=== PATIENT | female | born 2000 | race Two or more races ===

== ENCOUNTER 2024-01-24 10:17 | Outpatient (CLI) ==
[~2024-01-24] VITALS: Ht 160 cm; Wt 67.0 kg
[2024-01-24 10:26] VITALS: BP 131/75
[2024-01-24] MEDS ORDERED: PRENTAB9 PO (11:00)
[2024-01-24] MEDS: BETAMETHASONE SOLUSPAN 6MG/ML 5ML VIAL IM SCH (11:31)
[2024-01-24] MEDS ORDERED: HOME MED LIST COMPLETE! XX SCH (11:45)
[2024-01-24 12:06] LABS: APPEARANCE, URINE HAZY (CLEAR); BACTERIA, URINE AUTO NEGATIVE (NEGATIVE); BILIRUBIN, URINE AUTO NEGATIVE (NEGATIVE); BLOOD, URINE BLOOD NEGATIVE (NEGATIVE); COLOR, URINE YELLOW (YELLOW); GLUCOSE, URINE (UA) AUTO 1+ mg/dL (NEGATIVE); KETONE, URINE AUTO NEGATIVE (NEGATIVE); LEUKOCYTE ESTERASE, URINE AUTO NEGATIVE (NEGATIVE); MUCUS, URINE SMALL (NEGATIVE); NITRITE, URINE AUTO NEGATIVE (NEGATIVE); PROTEIN, URINE AUTO NEGATIVE (NEGATIVE); RBC, URINE AUTO 0 /HPF (0-3); SPECIFIC GRAVITY URINE AUTO 1.015 (1.002-1.035); SQUAMOUS EPITHELIAL CELL UR AU 0 /HPF (0-6); UROBILINOGEN, URINE AUTO 0.2 mg/dL (0.0-2.0); WBC, URINE AUTO 2 /HPF (0-3)
[2024-01-24 12:28] LABS: HEMATOCRIT 31.3 % (36.0-47.0); HEMOGLOBIN 10.7 g/dl (12.0-15.5); MEAN CORPUSCULAR HEMOGLOBIN 31.3 pg (27.0-33.0); MEAN CORPUSCULAR HGB CONC 34.2 g/dl (32.0-36.5); MEAN CORPUSCULAR VOLUME 91.5 fl (80.0-96.0); PLATELET COUNT, AUTOMATED 286 10^3/uL (150-450); RED BLOOD COUNT 3.42 10^6/uL (4.00-5.40); WHITE BLOOD COUNT 9.6 10^3/uL (4.0-10.0)
[2024-01-24 13:08] LABS: ALBUMIN 2.6 G/DL (3.2-5.2); ALKALINE PHOSPHATASE 68 U/L (35-104); ALT/SGPT 44 U/L (7.0-40); AST/SGOT 21 U/L (<34); BILIRUBIN,TOTAL 0.2 MG/DL (0.3-1.2); BLOOD UREA NITROGEN 8 MG/DL (9-23); CALCIUM LEVEL 8.4 MG/DL (8.5-10.1); CARBON DIOXIDE LEVEL 25 MMOL/L (20-31); CHLORIDE LEVEL 108 MMOL/L (98-107); CREATININE FOR GFR 0.56 MG/DL (0.55-1.30); GLOMERULAR FILTRATION RATE > 60.0 (>60); GLUCOSE, FASTING 86 MG/DL (60-100); POTASSIUM SERUM 3.9 MMOL/L (3.5-5.1); SODIUM LEVEL 138 MMOL/L (136-145); TOTAL PROTEIN 6.3 G/DL (5.7-8.2)
[2024-01-24 13:37] VITALS: BP 115/60
[2024-01-24 15:31] VITALS: BP 125/74
[2024-01-24 18:28] VITALS: BP 118/67
[2024-01-24 19:52] VITALS: BP 118/58
[2024-01-24] MEDS: ACETAMINOPHEN 500 MG TAB PO PRN (21:06)
[2024-01-24 23:11] VITALS: BP 104/59
[2024-01-24 23:47] LABS: Trichomonas vaginalis (AMP) NOT DETECTED (NEGATIVE)
[2024-01-25 00:10] LABS: GC DNA AMPLIFICATION NEGATIVE (NEGATIVE)
[2024-01-25 02:02] VITALS: BP 85/43
[2024-01-25 06:43] VITALS: BP 109/59
[2024-01-25 07:14] VITALS: BP 117/55
[2024-01-25] MEDS ORDERED: PRENATAL VITAMINS CHEWABLE TABLET PO SCH (09:00)
[2024-01-25 10:59] VITALS: BP 114/58
== END 2024-01-25 12:39 | disposition home or self-care (01) ==
LOC: M LDO 10:17
PROVIDERS: ATTEND Advanced Practice Midwife
DX: O26.892 Other specified pregnancy related conditions, second trimester (principal); O26.22 Pregnancy care for patient with recurrent pregnancy loss, second trimester; R10.31 Right lower quadrant pain; M54.50 Low back pain, unspecified; Z3A.27 27 weeks gestation of pregnancy
CPT/HCPCS: 36415; 59025; 76817; 80053; 81001; 82731; 85027; 86850; 86900; 86901; 87070; 87081; 87661; 87810; 87850; 96372; G0463; J0702

== ENCOUNTER 2024-01-27 14:15 | Outpatient (CLI) | payer OTHER ==
[~2024-01-27] VITALS: Ht 160 cm; Wt 66.8 kg
[~2024-01-27 14:15] MED LIST: PRENTAB9 PO
[2024-01-27] MEDS ORDERED: ACET500P3 PO (14:26)
[2024-01-27 14:28] VITALS: BP 112/60
[2024-01-27] MEDS ORDERED: HOME MED LIST COMPLETE! XX SCH (14:30)
== END 2024-01-27 17:00 | disposition home or self-care (01) ==
LOC: M LDO 14:15
PROVIDERS: ATTEND Obstetrics & Gynecology
DX: O26.893 Other specified pregnancy related conditions, third trimester (principal); O26.23 Pregnancy care for patient with recurrent pregnancy loss, third trimester; O99.343 Other mental disorders complicating pregnancy, third trimester; R10.2 Pelvic and perineal pain; F41.9 Anxiety disorder, unspecified; F43.10 Post-traumatic stress disorder, unspecified; Z3A.28 28 weeks gestation of pregnancy
CPT/HCPCS: 59025; 76815; G0463

== ENCOUNTER 2024-02-20 07:47 | Outpatient (CLI) | payer OTHER ==
[~2024-02-20] VITALS: Ht 160 cm; Wt 72.1 kg
[~2024-02-20 07:47] MED LIST changes: +ACET500P3 PO
[2024-02-20 08:07] VITALS: BP 102/66
[2024-02-20] MEDS ORDERED: HOME MED LIST COMPLETE! XX SCH (08:15)
[2024-02-20] MEDS: ACETAMINOPHEN 500 MG TAB PO PRN (08:40)
[2024-02-20] MEDS: FLUCONAZOLE 50MG TABLET PO ONE (08:42)
[2024-02-20 08:58] LABS: APPEARANCE, URINE CLEAR (CLEAR); BACTERIA, URINE AUTO NEGATIVE (NEGATIVE); BILIRUBIN, URINE AUTO NEGATIVE (NEGATIVE); BLOOD, URINE BLOOD NEGATIVE (NEGATIVE); COLOR, URINE YELLOW (YELLOW); GLUCOSE, URINE (UA) AUTO NEGATIVE (NEGATIVE); KETONE, URINE AUTO NEGATIVE (NEGATIVE); LEUKOCYTE ESTERASE, URINE AUTO NEGATIVE (NEGATIVE); MUCUS, URINE SMALL (NEGATIVE); NITRITE, URINE AUTO NEGATIVE (NEGATIVE); PROTEIN, URINE AUTO NEGATIVE (NEGATIVE); RBC, URINE AUTO 2 /HPF (0-3); SPECIFIC GRAVITY URINE AUTO 1.014 (1.002-1.035); SQUAMOUS EPITHELIAL CELL UR AU 0 /HPF (0-6); UROBILINOGEN, URINE AUTO 0.2 mg/dL (0.0-2.0); WBC, URINE AUTO 1 /HPF (0-3)
== END 2024-02-20 09:41 | disposition home or self-care (01) ==
LOC: M LDO 07:47
PROVIDERS: ATTEND Obstetrics & Gynecology
DX: O47.03 False labor before 37 completed weeks of gestation, third trimester (principal); O26.893 Other specified pregnancy related conditions, third trimester; R10.2 Pelvic and perineal pain; Z3A.31 31 weeks gestation of pregnancy
CPT/HCPCS: 59025; 76815; 81001; 87086; G0463

== ENCOUNTER 2024-02-24 10:19 | Outpatient (CLI) | payer OTHER ==
[~2024-02-24] VITALS: Ht 160 cm; Wt 72.7 kg
[2024-02-24 10:53] VITALS: BP 101/64
[2024-02-24] MEDS ORDERED: HOME MED LIST COMPLETE! XX SCH (10:55)
[2024-02-24 11:40] VITALS: BP 104/60
== END 2024-02-24 12:37 | disposition home or self-care (01) ==
LOC: M LDO 10:19
PROVIDERS: ATTEND Obstetrics & Gynecology
DX: O47.03 False labor before 37 completed weeks of gestation, third trimester (principal); Z3A.32 32 weeks gestation of pregnancy
CPT/HCPCS: 59025; G0463

== ENCOUNTER 2024-03-19 10:38 | Inpatient (IN) | payer OTHER ==
[~2024-03-19] VITALS: Ht 160 cm; Wt 74.3 kg
[2024-03-19] VITALS (27 sets, daily range): BP systolic 88–151; BP diastolic 51–79; O2SAT 100
[2024-03-19] MEDS ORDERED: REGL10TA6 PO (10:55)
[2024-03-19] MEDS ORDERED: HOME MED LIST COMPLETE! XX SCH (11:00)
[2024-03-19] MEDS ORDERED: PENICILLIN G POTASSIUM 5 MU IV 5 MU in DEXTROSE 5% (D5W) MINI-BAG PLU 100 ML IV STA (11:37)
[2024-03-19] MEDS ORDERED: METHYLERGONOVINE MALEATE 0.2MG/ML 1ML VIAL IM PRN (11:40)
[2024-03-19] MEDS ORDERED: CARBOPROST TROMETHAMINE 250 MCG/ML AMP IM PRN (11:40)
[2024-03-19] MEDS ORDERED: LIDOCAINE 1% MDV 20ML VIAL INFIL PRN (11:40)
[2024-03-19] MEDS ORDERED: OXYTOCIN DRIP 30 UNITS in IV 1 EA IV PRN (11:40)
[2024-03-19] MEDS ORDERED: TRANEXAMIC ACID INJection 1,000 MG in NS 100 ML IV PRN (11:40)
[2024-03-19] MEDS ORDERED: **PENDING PCN ENTRY XX SCH (12:00)
[2024-03-19 12:48] LABS: HEMATOCRIT 36.2 % (36.0-47.0); HEMOGLOBIN 11.8 g/dl (12.0-15.5); MEAN CORPUSCULAR HEMOGLOBIN 28.8 pg (27.0-33.0); MEAN CORPUSCULAR HGB CONC 32.6 g/dl (32.0-36.5); MEAN CORPUSCULAR VOLUME 88.3 fl (80.0-96.0); PLATELET COUNT, AUTOMATED 317 10^3/uL (150-450); WHITE BLOOD COUNT 8.1 10^3/uL (4.0-10.0)
[2024-03-19] MEDS: LACTATED RINGER'S 1000 ML IV STA (12:49)
[2024-03-19] MEDS: OXYTOCIN DRIP 30 UNITS in IV 1 EA IV SCH ×2 (12:50→19:09)
[2024-03-19] MEDS: PENICILLIN G POTASSIUM 5 MU IV 5 MU in DEXTROSE 5% (D5W) MINI-BAG PLU 100 ML IV ONE (12:50)
[2024-03-19 14:04] LABS: HEPATITIS C VIRUS ABY INDEX 0.02 INDEX (<0.8)
[2024-03-19] MEDS ORDERED: ePHEDrine SULFATE 25 MG/5 ML(5MG/ML) SYRINGE IVP PRN (15:20)
[2024-03-19] MEDS ORDERED: LR 500 ML IV PRN (15:20)
[2024-03-19] MEDS ORDERED: diphenhydrAMINE 50MG/ML VIAL IV PRN (15:20)
[2024-03-19] MEDS ORDERED: EPIDURAL/PCA KEYS XX PRN (15:20)
[2024-03-19] MEDS ORDERED: NALOXONE INJ 0.4MG/1ML VIAL IV PRN (15:20)
[2024-03-19] MEDS ORDERED: FENTANYL 2MCG/ML ROPIVACAINE 0.2% IN 0.9% NACL 100ML IVBAG As Ordered ONE (15:22)
[2024-03-19] MEDS ORDERED: PEN G POT 3,000,000 UNIT/50 ML 3,000,000 UNIT in IV 1 EA IV SCH (15:40)
[2024-03-19] MEDS: LR 1,000 ML IV SCH ×2 (16:28→19:08)
[2024-03-19] MEDS: FENTANYL/ROPIVACAINE/NACL BAG 100 ML EPIDURAL SCH (16:32)
[2024-03-19] MEDS: PEN G POT 3,000,000 UNIT/50 ML 3,000,000 UNIT in IV 1 EA IV SCH (16:44)
[2024-03-19] MEDS ORDERED: DOCUSATE SODIUM 100MG CAPSULE PO PRN (18:25)
[2024-03-19] MEDS ORDERED: ONDANSETRON 4MG 2ML VIAL IV PRN (18:25)
[2024-03-19] MEDS ORDERED: METHYLERGONOVINE MALEATE 0.2 MG TAB PO PRN (18:25)
[2024-03-19] MEDS ORDERED: CALCIUM CARBONATE 500 MG CHEW U/D PO PRN (18:25)
[2024-03-19] MEDS ORDERED: ANUSOL HC CREAM 30GM TOP PRN (18:25)
[2024-03-19] MEDS: ACETAMINOPHEN 500 MG TAB PO PRN (21:37)
[2024-03-20 06:14] VITALS: BP 86/53; O2SAT 100
[2024-03-20] MEDS: PRENATAL VITAMINS CHEWABLE TABLET PO SCH (08:22)
[2024-03-20] MEDS: IBUPROFEN 800 MG TAB PO PRN (08:23)
[2024-03-20] MEDS: DIBUCAINE 1% OINTMENT 30GM TOP PRN (12:58)
[2024-03-20] MEDS: ACETAMINOPHEN 325 MG TAB PO PRN (14:15)
[2024-03-20 18:00] VITALS: BP 103/56; O2SAT 99
[2024-03-20] MEDS: IBUPROFEN 600MG TAB PO PRN (20:57)
[2024-03-21 05:40] VITALS: BP 112/74; O2SAT 100
[2024-03-21] MEDS: MEASLES,MUMPS,RUBELLA VACCINE INJ (MMR-II) SC.IMMUN ONE (07:19)
[2024-03-21] MEDS: RHOGAM 300MCG (1500IU) INJ IM SCH (07:19)
[2024-03-21] MEDS: FLUZONE VACCINE TRIVALENT PF(2024-25) 0.5ML SYRINGE IM.IMMUN ONE (07:40)
[2024-03-21] MEDS ORDERED: IBUP-1022 PO (12:00)
[2024-03-21] MEDS ORDERED: ACET-683 PO (12:00)
[2024-03-21] MEDS ORDERED: COLA100C5 PO (12:00)
== END 2024-03-21 17:00 | disposition home or self-care (01) | DRG 807 ==
LOC: M LDO 10:38 → M LDI 11:34 → M OBS 21:00
PROVIDERS: ADMIT Obstetrics & Gynecology; ATTEND Obstetrics & Gynecology
PROC: 10E0XZZ Delivery of Products of Conception, External Approach (ICD-10-PCS; principal; 2024-03-19)
PROC: 0KQM0ZZ Repair Perineum Muscle, Open Approach (ICD-10-PCS; 2024-03-19)
DX: O42.013 Preterm premature rupture of membranes, onset of labor within 24 hours of rupture, third trimester (principal); Z37.0 Single live birth; Z3A.35 35 weeks gestation of pregnancy; O70.1 Second degree perineal laceration during delivery

== ENCOUNTER 2024-04-27 18:45 | Emergency (ER) | payer OTHER ==
[~2024-04-27] VITALS: Ht 160 cm; Wt 64.7 kg
[~2024-04-27 18:45] MED LIST changes: +ACET-683 PO; +COLA100C5 PO; +IBUP-1022 PO; +REGL10TA6 PO
[2024-04-27 18:50] VITALS: TEMP 98.6
[2024-04-27 20:27] LABS: BASO # 0.1 10^3/uL (0.0-0.2); BASO % 0.7 % (0.0-1.0); EOS % 0.6 % (0.0-3.0); HEMATOCRIT 36.7 % (36.0-47.0); HEMOGLOBIN 12.1 g/dl (12.0-15.5); LYMPH # 2.8 10^3/uL (1.5-5.0); LYMPH % 40.1 % (24.0-44.0); MEAN CORPUSCULAR HEMOGLOBIN 28.7 pg (27.0-33.0); MEAN CORPUSCULAR VOLUME 87.2 fl (80.0-96.0); MONO # 0.4 10^3/uL (0.0-0.8); MONO % 5.9 % (2.0-8.0); NEUTROPHILS # 3.6 10^3/uL (1.5-8.5); NEUTROPHILS % 52.3 % (36.0-66.0); PLATELET COUNT, AUTOMATED 366 10^3/uL (150-450); RED BLOOD COUNT 4.21 10^6/uL (4.00-5.40)
[2024-04-27] MEDS: IBUPROFEN 800 MG TAB PO ONE (20:35)
[2024-04-27 20:52] LABS: BLOOD UREA NITROGEN 12 MG/DL (9-23); CALCIUM LEVEL 9.2 MG/DL (8.5-10.1); CARBON DIOXIDE LEVEL 22 MMOL/L (20-31); CHLORIDE LEVEL 109 MMOL/L (98-107); CREATININE FOR GFR 0.83 MG/DL (0.55-1.30); GLOMERULAR FILTRATION RATE > 60.0 (>60); GLUCOSE, FASTING 98 MG/DL (60-100); POTASSIUM SERUM 4.1 MMOL/L (3.5-5.1); SODIUM LEVEL 141 MMOL/L (136-145)
[2024-04-27 20:53] LABS: HCG, SERUM QUALITATIVE NEGATIVE (NEGATIVE)
[2024-04-27 21:12] VITALS: BP 109/58; O2SAT 98
[2024-04-27] MEDS ORDERED: IBUP80TA PO (21:34)
== END 2024-04-27 21:40 | disposition home or self-care (01) ==
LOC: M ED 18:45
DX: N94.4 Primary dysmenorrhea (principal); E28.2 Polycystic ovarian syndrome; Z91.040 Latex allergy status; Z88.8 Allergy status to other drugs, medicaments and biological substances; Z79.1 Long term (current) use of non-steroidal anti-inflammatories (NSAID); Z79.810 Long term (current) use of selective estrogen receptor modulators (SERMs)

== ENCOUNTER 2024-06-06 15:31 | Emergency (ER) | payer OTHER ==
[~2024-06-06 15:31] MED LIST changes: +IBUP80TA PO
[2024-06-06] MEDS: NS (Normal Saline) 0.9% 1,000 ML IV ONE ×2 (19:47→21:34)
[2024-06-06 21:26] LABS: BASO % 0.2 % (0.0-1.0); HEMATOCRIT 42.9 % (36.0-47.0); HEMOGLOBIN 13.8 g/dl (12.0-15.5); LYMPH # 1.5 10^3/uL (1.5-5.0); LYMPH % 12.9 % (24.0-44.0); MEAN CORPUSCULAR HEMOGLOBIN 28.8 pg (27.0-33.0); MEAN CORPUSCULAR HGB CONC 32.2 g/dl (32.0-36.5); MEAN CORPUSCULAR VOLUME 89.4 fl (80.0-96.0); MONO # 0.7 10^3/uL (0.0-0.8); MONO % 6.3 % (2.0-8.0); NEUTROPHILS # 9.4 10^3/uL (1.5-8.5); PLATELET COUNT, AUTOMATED 378 10^3/uL (150-450); WHITE BLOOD COUNT 11.8 10^3/uL (4.0-10.0)
[2024-06-06] MEDS: METOCLOPRAMIDE INJ 10MG/2ML VIAL IV ONE (21:34)
[2024-06-06 21:58] LABS: LIPASE 144 U/L (12-53)
[2024-06-06] MEDS: diphenhydrAMINE 50MG/ML VIAL IV STA (21:59)
[2024-06-06 22:00] LABS: ALBUMIN 4.3 G/DL (3.2-5.2); ALKALINE PHOSPHATASE 113 U/L (35-104); ALT/SGPT 25 U/L (7.0-40); AST/SGOT 21 U/L (<34); BILIRUBIN,DIRECT < 0.1 MG/DL (<0.4); BILIRUBIN,TOTAL 0.3 MG/DL (0.3-1.2); TOTAL PROTEIN 8.5 G/DL (5.7-8.2)
[2024-06-06 22:13] LABS: BLOOD UREA NITROGEN 8 MG/DL (9-23); CALCIUM LEVEL 8.5 MG/DL (8.5-10.1); CARBON DIOXIDE LEVEL < 10.0 MMOL/L (20-31); CHLORIDE LEVEL 107 MMOL/L (98-107); CREATININE FOR GFR 0.87 MG/DL (0.55-1.30); GLOMERULAR FILTRATION RATE > 60.0 (>60); GLUCOSE, FASTING 44 MG/DL (60-100); SODIUM LEVEL 135 MMOL/L (136-145)
[2024-06-06] MEDS ORDERED: PROMETHAZINE 25MG/ML 1ML VIAL IV ONE (22:30)
[2024-06-06] MEDS: DEXTROSE 50% 50ML SYRINGE IV STA (22:34)
[2024-06-06] MEDS: PROMETHAZINE 25MG/ML 1ML VIAL IM ONE (23:13)
[2024-06-06] MEDS: NS (Normal Saline) 0.9% 1,000 ML IV SCH (23:13)
[2024-06-07] MEDS: NS (Normal Saline) 0.9% 1,000 ML IV ONE (00:10)
[2024-06-07] MEDS ORDERED: PROM25SU3 PR (00:12)
[2024-06-07] MEDS ORDERED: PROM25TA12 PO (00:12)
[2024-06-07 02:02] VITALS: BP 114/61; TEMP 98.1; O2SAT 99
[2024-06-07] MEDS: PROMETHAZINE 25MG SUPP PR ONE (02:05)
== END 2024-06-07 02:08 | disposition home or self-care (01) ==
LOC: M ED 15:31
DX: A09 Infectious gastroenteritis and colitis, unspecified (principal); E86.0 Dehydration; E28.2 Polycystic ovarian syndrome; Z88.8 Allergy status to other drugs, medicaments and biological substances; Z91.040 Latex allergy status; Z79.1 Long term (current) use of non-steroidal anti-inflammatories (NSAID); Z79.899 Other long term (current) drug therapy; Z79.810 Long term (current) use of selective estrogen receptor modulators (SERMs)
CPT/HCPCS: 36415; 80047; 80048; 80076; 83690; 85025; 87486; 87581; 87633; 87798; 96361; 96372; 96374; 96375; 99284; J1200; J2550; J2765

== ENCOUNTER → 2024-10-12 | Outpatient (CLI) | payer OTHER ==
[~2024-10-12] MED LIST changes: +ISOVUE-370 76% 100 ML VIAL ONE; +PROM25SU3 PR; +PROM25TA12 PO
== END ==
LOC: M PLAIMG 09:00
PROVIDERS: ATTEND Physician Assistant
DX: E32.8 Other diseases of thymus (principal)
CPT/HCPCS: 71260; Q9967

== ENCOUNTER → 2024-11-23 | Outpatient (CLI) | payer OTHER ==
[~2024-11-23] MED LIST changes: -IBUP-1022 PO; +IBUP600T42 PO; -ISOVUE-370 76% 100 ML VIAL ONE
== END ==
LOC: M PLAIMG 14:31
DX: Z53.9 Procedure and treatment not carried out, unspecified reason (principal)

== ENCOUNTER → 2024-12-11 | Outpatient (CLI) | payer OTHER ==
[~2024-12-11] MED LIST changes: +ISOVUE-370 76% 100 ML VIAL As Ordered ONE
== END ==
LOC: M RAD 09:23
DX: N10 Acute pyelonephritis (principal)